=== PATIENT | male | born 1960 | race Caucasian/White ===

== ENCOUNTER 2016-11-06 07:45 | Emergency (ER) | payer OTHER ==
[~2016-11-06] VITALS: Ht 175.3 cm; Wt 109.1 kg
[2016-11-06] MEDS ORDERED: METH10 PO (07:52)
[2016-11-06 09:33] LABS: BASOPHILS % (AUTO) 0.4 % (0.0-2.0); EOSINOPHILS % (AUTO) 3.8 % (1.0-6.0); HEMATOCRIT 38.6 % (41-53); HEMOGLOBIN 12.7 g/dL (13.5-17.5); LYMPHOCYTES % (AUTO) 43.8 % (22.0-44.0); MEAN CORPUSCULAR HEMOGLOBIN 29.7 pg (26.0-34.0); MEAN CORPUSCULAR HGB CONC 32.9 G/dL (31.0-37.0); MEAN CORPUSCULAR VOLUME 91 fL (80-100); MONOCYTES # (AUTO) 0.6 K/uL (0.1-1.0); MONOCYTES % (AUTO) 8.2 % (2.0-9.0); NEUTROPHILS % (AUTO) 43.8 % (40.0-70.0); PLATELET COUNT (AUTO) 199 K/uL (150-450); RED BLOOD CELL COUNT(AUTO) 4.27 MIL/uL (4.50-5.90); RED CELL DISTRIBUTION WIDTH 13.1 % (11.5-14.5)
[2016-11-06 09:37] LABS: ANION GAP 7 mmol/L (8-16); CALCIUM, TOTAL 8.7 mg/dL (8.8-10.5); CARBON DIOXIDE 31 mmol/L (22-29); CHLORIDE 99 mmol/L (98-107); CREATININE 0.65 mg/dL (0.60-1.30); GLOMERULAR FILTR. RATE CALC > 60 mL/min (>60); POTASSIUM 4.3 mmol/L (3.5-5.1); SODIUM SERUM 137 mmol/L (136-145); UREA NITROGEN, BLOOD 7 mg/dL (7-18)
[2016-11-06 09:38] LABS: PROTHROMBIN TIME 10.6 SEC (9.4-11.6)
[2016-11-06 09:56] LABS: B-TYPE NATRIURETIC PEPTIDE 24 pg/mL (0-100)
[2016-11-06 10:02] LABS: ALANINE AMINOTRANSFERASE 91 U/L (12-78); ALBUMIN 3.2 g/dL (3.4-5.0); ASPARTATE AMINOTRANSFERASE 60 U/L (15-37); BILIRUBIN,TOTAL 0.5 mg/dL (0.1-1.0); CREATINE KINASE MB 0.9 ng/mL (0-5); CREATINE KINASE, TOTAL 75 U/L (39-308); TOTAL PROTEIN, SERUM 7.7 g/dL (6.4-8.2)
[2016-11-06 10:24] LABS: APPEARANCE,URINE CLEAR (CLEAR); GLUCOSE, URINE (UA) NEGATIVE (NEGATIVE); KETONES,URINE NEGATIVE (NEGATIVE); LEUKOCYTE ESTERASE ,URINE NEGATIVE (NEGATIVE); OCCULT BLOOD,URINE SMALL (NEGATIVE); PH,URINE 7.5 (5.0-8.0); PROTEIN,URINE NEGATIVE (NEGATIVE)
[2016-11-06 10:29] LABS: ADD UA MICROSCOPIC YES
[2016-11-06 10:32] LABS: WBC,URINE None Seen /HPF (0-5)
[2016-11-06 10:33] LABS: SQUAMOUS EPITHELIAL CELL,UR None Seen /LPF (None Seen)
[2016-11-06 12:16] VITALS: BP 142/88
== END 2016-11-06 12:33 | disposition home or self-care (01) ==
LOC: EMS 07:48
DX: B19.20 Unspecified viral hepatitis C without hepatic coma (principal); J44.9 Chronic obstructive pulmonary disease, unspecified; F17.210 Nicotine dependence, cigarettes, uncomplicated; F11.90 Opioid use, unspecified, uncomplicated; Z86.718 Personal history of other venous thrombosis and embolism
CPT/HCPCS: 76700; 93005; 99285

== ENCOUNTER 2017-09-03 08:48 | Emergency (ER) | payer OTHER ==
[~2017-09-03] VITALS: Ht 172.7 cm; Wt 127.3 kg
[~2017-09-03 08:48] MED LIST: METH10 PO
[2017-09-03] MEDS ORDERED: ALBU8HFA IH (08:59)
[2017-09-03] MEDS ORDERED: ALBUTEROL SULFATE 2.5 MG/0.5 ML NEB SOLUTION NEB ONE (09:30)
[2017-09-03] MEDS ORDERED: IPRATROPIUM BROMIDE 0.5 MG/2.5 ML NEB SOLUTION NEB ONE (09:30)
[2017-09-03 11:09] VITALS: BP 122/78
[2017-09-03] MEDS ORDERED: ALBUTEROL SULFATE HFA 90 MCG/PUFF 8 GM INHALER IH ONE (11:15)
== END 2017-09-03 11:30 | disposition home or self-care (01) ==
LOC: EMS 08:50
DX: J45.909 Unspecified asthma, uncomplicated (principal); R60.0 Localized edema; K75.9 Inflammatory liver disease, unspecified; F17.210 Nicotine dependence, cigarettes, uncomplicated; Z86.718 Personal history of other venous thrombosis and embolism; Z79.899 Other long term (current) drug therapy
CPT/HCPCS: 94640; 99284; J7613; J3535

== ENCOUNTER 2017-09-04 22:52 | Emergency (ER) | payer OTHER ==
[~2017-09-04] VITALS: Ht 172.7 cm; Wt 127.3 kg
[~2017-09-04 22:52] MED LIST changes: +ALBU8HFA IH
[2017-09-04 22:56] VITALS: BP 150/91
== END 2017-09-05 01:53 | disposition left against medical advice (07) ==
LOC: EMS 22:53
DX: R05 Cough (principal); Z53.21 Procedure and treatment not carried out due to patient leaving prior to being seen by health care provider

== ENCOUNTER 2017-10-12 19:42 | Emergency (ER) | payer OTHER ==
[~2017-10-12] VITALS: Ht 177.8 cm; Wt 131.8 kg
[2017-10-12] MEDS ORDERED: SULFAMETHOX/TRIMETH DS 800-160 MG/TABLET PO ONE (22:00)
[2017-10-12] MEDS ORDERED: CEPHALEXIN MONOHYDRATE 500 MG CAPSULE PO ONE (22:00)
[2017-10-12] MEDS ORDERED: IBUPROFEN 800 MG TABLET PO ONE (22:00)
[2017-10-12 22:51] VITALS: BP 132/72
== END 2017-10-12 23:03 | disposition home or self-care (01) ==
LOC: EMS 19:43
DX: L03.116 Cellulitis of left lower limb (principal); J44.9 Chronic obstructive pulmonary disease, unspecified; F17.210 Nicotine dependence, cigarettes, uncomplicated; F11.90 Opioid use, unspecified, uncomplicated
CPT/HCPCS: 99284

== ENCOUNTER 2017-11-29 08:40 | Emergency (ER) | payer OTHER ==
[~2017-11-29] VITALS: Ht 172.7 cm; Wt 131.8 kg
[2017-11-29] MEDS ORDERED: FURO20 PO (09:02)
[2017-11-29] MEDS ORDERED: BLOOD PRESSURE PO (09:02)
[2017-11-29] MEDS ORDERED: IPRA4AER IH (09:02)
[2017-11-29 10:35] LABS: BASOPHILS % (AUTO) 0.5 % (0.0-2.0); EOSINOPHILS % (AUTO) 5.6 % (1.0-6.0); HEMOGLOBIN 11.4 g/dL (13.5-17.5); MEAN CORPUSCULAR HEMOGLOBIN 29.1 pg (26.0-34.0); MEAN CORPUSCULAR HGB CONC 33.5 G/dL (31.0-37.0); MEAN CORPUSCULAR VOLUME 87 fL (80-100); MONOCYTES # (AUTO) 0.7 K/uL (0.1-1.0); NEUTROPHILS # (AUTO) 3.4 K/uL (1.8-7.7); NEUTROPHILS % (AUTO) 52.9 % (40.0-70.0); PLATELET COUNT (AUTO) 225 K/uL (150-450); RED BLOOD CELL COUNT(AUTO) 3.92 MIL/uL (4.50-5.90); RED CELL DISTRIBUTION WIDTH 13.5 % (11.5-14.5)
[2017-11-29 10:48] LABS: ANION GAP 4 mmol/L (8-16); CALCIUM, TOTAL 8.3 mg/dL (8.8-10.5); CARBON DIOXIDE 32 mmol/L (22-29); CHLORIDE 97 mmol/L (98-107); CREATININE 0.78 mg/dL (0.60-1.30); GLOMERULAR FILTR. RATE CALC > 60 mL/min (>60); GLUCOSE,RANDOM 145 mg/dL (70-110); POTASSIUM 4.1 mmol/L (3.5-5.1); SODIUM SERUM 133 mmol/L (136-145); UREA NITROGEN, BLOOD 9 mg/dL (7-18)
[2017-11-29 10:54] LABS: ALANINE AMINOTRANSFERASE 42 U/L (12-78); ALKALINE PHOSPHATASE 99 U/L (46-116); ASPARTATE AMINOTRANSFERASE 35 U/L (15-37); BILIRUBIN,TOTAL 0.2 mg/dL (0.1-1.0); TOTAL PROTEIN, SERUM 7.8 g/dL (6.4-8.2)
[2017-11-29 11:08] LABS: C-REACTIVE PROTEIN QUANT 1.39 mg/dL (0.00-0.30)
[2017-11-29 11:20] VITALS: BP 121/74
== END 2017-11-29 11:24 | disposition home or self-care (01) ==
LOC: EMS 08:41
DX: L03.116 Cellulitis of left lower limb (principal); F11.10 Opioid abuse, uncomplicated; J44.9 Chronic obstructive pulmonary disease, unspecified; J40 Bronchitis, not specified as acute or chronic; Z87.891 Personal history of nicotine dependence
CPT/HCPCS: 86140; 99284

== ENCOUNTER 2018-04-12 06:30 | Day surgery (SDC) | payer OTHER ==
[~2018-04-12] VITALS: Ht 174 cm; Wt 128.1 kg
[~2018-04-12 06:30] MED LIST changes: +FURO20 PO; +IPRA4AER IH; -METH10 PO; +METH10SO PO; +MONT10TA21 PO; +RANI150T7 PO
[2018-04-12] MEDS ORDERED: LIDOCAINE 2% 30 ML JELLY TP ONE (06:31)
[2018-04-12] MEDS ORDERED: BENZOCAINE 20% 50 MCG/SPRAY 57 GM TP ONE (06:31)
[2018-04-12] MEDS ORDERED: LIDOCAINE 4% 50 ML SOLUTION TP ONE (06:31)
[2018-04-12] MEDS ORDERED: ALBUTEROL SULFATE 2.5 MG/0.5 ML NEB SOLUTION NEB ONE (06:31)
[2018-04-12] MEDS ORDERED: SODIUM CHLORIDE 0.9% 1,000 ML IV ONE ×2 (06:45→07:00)
[2018-04-12] MEDS ORDERED: MIDAZOLAM HCL 2 MG/2 ML VIAL ONE (07:49)
[2018-04-12] MEDS ORDERED: FentaNYL CITRATE-PF 100 MCG/2 ML VIAL ONE (07:49)
[2018-04-12] MEDS ORDERED: MethylPREDNISolone SOD SUCC 125 MG/2 ML VIAL IVP ONE (09:15)
[2018-04-12] MEDS ORDERED: MethylPREDNISolone SOD SUCC 125 MG/2 ML VIAL ONE (09:18)
[2018-04-12] MEDS ORDERED: OXYGEN THERAPY IH SCH (20:00)
== END 2018-04-12 10:50 | disposition home or self-care (01) ==
LOC: SURGERY 06:30
PROVIDERS: ATTEND Internal Medicine Critical Care Medicine
DX: J38.4 Edema of larynx (principal); B37.0 Candidal stomatitis; J84.111 Idiopathic interstitial pneumonia, not otherwise specified; J44.9 Chronic obstructive pulmonary disease, unspecified; I10 Essential (primary) hypertension; K21.9 Gastro-esophageal reflux disease without esophagitis; E66.3 Overweight; F15.21 Other stimulant dependence, in remission; Z86.19 Personal history of other infectious and parasitic diseases; Z79.891 Long term (current) use of opiate analgesic; Z68.41 Body mass index [BMI] 40.0-44.9, adult; Z87.891 Personal history of nicotine dependence; Z79.899 Other long term (current) drug therapy; Z98.890 Other specified postprocedural states
CPT/HCPCS: 31623; 31624; 71045; 87015; 87070; 87077; 87186; 87205; 87206; 87220; 88108; 88312; J2250; J2930; J3010; J7030

== ENCOUNTER 2024-04-14 18:08 | Emergency (ER) | payer OTHER ==
[~2024-04-14] VITALS: Ht 170.2 cm; Wt 100.0 kg
[~2024-04-14 18:08] MED LIST changes: +ALBU18HF12 IH; -ALBU8HFA IH; -FURO20 PO; +MONT-35 PO; -MONT10TA21 PO
[2024-04-14 19:09] LABS: BASOPHILS % (AUTO) 0.6 % (0.0-2.0); EOSINOPHILS % (AUTO) 2.5 % (1.0-6.0); HEMATOCRIT 42.3 % (41-53); HEMOGLOBIN 13.9 g/dL (13.5-17.5); LYMPHOCYTES # (AUTO) 2.1 K/uL (1.0-4.8); LYMPHOCYTES % (AUTO) 31.9 % (22.0-44.0); MEAN CORPUSCULAR HEMOGLOBIN 32.5 pg (26.0-34.0); MEAN CORPUSCULAR HGB CONC 32.9 G/dL (31.0-37.0); MEAN CORPUSCULAR VOLUME 99 fL (80-100); MONOCYTES # (AUTO) 0.7 K/uL (0.1-1.0); MONOCYTES % (AUTO) 10.2 % (2.0-9.0); NEUTROPHILS # (AUTO) 3.6 K/uL (1.8-7.7); NEUTROPHILS % (AUTO) 54.8 % (40.0-70.0); RED BLOOD CELL COUNT(AUTO) 4.27 MIL/uL (4.50-5.90); RED CELL DISTRIBUTION WIDTH 13.2 % (11.5-14.5); WHITE BLOOD COUNT (AUTO) 6.5 K/uL (4.5-11.0)
[2024-04-14 19:11] LABS: ANION GAP 12 mmol/L (8-16); CALCIUM, TOTAL 8.4 mg/dL (8.8-10.5); CARBON DIOXIDE 26 mmol/L (22-29); CHLORIDE 95 mmol/L (98-107); CREATININE 0.64 mg/dL (0.60-1.30); GLOMERULAR FILTR. RATE CALC > 60 mL/min (>60); GLUCOSE,RANDOM 185 mg/dL (70-110); POTASSIUM 3.5 mmol/L (3.5-5.1); SODIUM SERUM 133 mmol/L (136-145); UREA NITROGEN, BLOOD 15 mg/dL (7-18)
[2024-04-14 19:20] LABS: B-TYPE NATRIURETIC PEPTIDE 19 pg/mL (0-100); TROPONIN I-HIGH SENSITIVITY Less Than 4 ng/L (<76)
[2024-04-14 19:55] LABS: PLATELET COUNT (AUTO) 144 K/uL (150-450)
[2024-04-14 20:32] VITALS: BP 139/86; TEMP 98.3
[2024-04-14] MEDS: ALBUTEROL SULFATE 2.5 MG/0.5 ML NEB SOLUTION NEB ONE (20:57)
[2024-04-14] MEDS: IPRATROPIUM BROMIDE 0.5 MG/2.5 ML NEB SOLUTION NEB ONE (20:57)
[2024-04-14 21:05] VITALS: PULSE 93; RESP 23; O2SAT 90
[2024-04-14 21:06] VITALS: PULSE 93; RESP 23; O2SAT 90
[2024-04-14 22:55] LABS: INFLUENZA A-RTPCR,COMBO NEGATIVE (NEGATIVE); INFLUENZA B-RTPCR,COMBO NEGATIVE (NEGATIVE); RESPIRATORY SYNCYTIAL VRS-PCR NEGATIVE (NEGATIVE); SARS COVID19 RTPCR, COMBO NEGATIVE (NEGATIVE)
[2024-04-15] MEDS: CefTRIAXone SODIUM 1 GM/VIAL IM ONE (00:37)
[2024-04-15] MEDS: ONDANSETRON 4 MG TABLET PO ONE (00:37)
[2024-04-15] MEDS: LIDOCAINE/PF 1% 2 ML VIAL IM ONE (00:37)
[2024-04-15] MEDS: PredniSONE 20 MG TABLET PO ONE (00:37)
[2024-04-15] MEDS ORDERED: AZIT250T9 PO (00:55)
[2024-04-15] MEDS ORDERED: PRED-554 PO (00:55)
[2024-04-15] MEDS ORDERED: ALBU18HF12 IH (00:55)
== END 2024-04-15 01:05 | disposition home or self-care (01) ==
LOC: EMS 18:26
DX: J18.0 Bronchopneumonia, unspecified organism (principal); Z87.891 Personal history of nicotine dependence; Z98.890 Other specified postprocedural states; Z20.822 Contact with and (suspected) exposure to COVID-19
CPT/HCPCS: 99285; 0241U; 71045; 80048; 83880; 84484; 85025; 36415; 94640; 93005; 96372; J0696; J3490; Q0162; J7512; J7613

== ENCOUNTER → 2024-06-13 | Emergency (ER) | payer OTHER ==
[~2024-06-13] VITALS: Ht 172.7 cm; Wt 104.5 kg
[~2024-06-13] MED LIST changes: +PRED-554 PO
[2024-06-13 10:17] VITALS: BP 150/88; PULSE 92; RESP 18; TEMP 98.6; O2SAT 99
== END | disposition left against medical advice (07) ==
LOC: EMS 10:04
DX: L08.9 Local infection of the skin and subcutaneous tissue, unspecified (principal); Z53.21 Procedure and treatment not carried out due to patient leaving prior to being seen by health care provider

== ENCOUNTER 2024-09-29 19:40 | Emergency (ER) | payer MEDICARE, OTHER ==
[~2024-09-29] VITALS: Ht 177.8 cm; Wt 81.0 kg
[2024-09-29 19:41] VITALS: BP 144/85; PULSE 92; RESP 18; TEMP 97.9; O2SAT 95
== END 2024-09-29 22:25 | disposition left against medical advice (07) ==
LOC: EMS 19:40
DX: J44.1 Chronic obstructive pulmonary disease with (acute) exacerbation (principal); Z53.21 Procedure and treatment not carried out due to patient leaving prior to being seen by health care provider